=== PATIENT | male | born 1985 | race African-American/Black ===

== ENCOUNTER 2020-03-17 16:08 | Emergency (ER) | payer SELFPAY ==
[~2020-03-17] VITALS: Ht 170.2 cm; Wt 89.8 kg
[2020-03-17] MEDS ORDERED: AMLODIPINE BESYL5 MG PO (17:33)
== END 2020-03-17 18:19 | disposition home or self-care (01) ==
LOC: ER 16:30
DX: I10 Essential (primary) hypertension (principal); E11.9 Type 2 diabetes mellitus without complications
CPT/HCPCS: 99283